=== PATIENT | female | born 1995 | race Caucasian/White ===

== ENCOUNTER 2017-11-14 20:36 | Inpatient (IN) ==
[2017-11-14] MEDS ORDERED: ACETAMINOPHEN 325 MG TABLET PO PRN (20:48)
[2017-11-14] MEDS ORDERED: BUTORPHANOL 2 MG/ML VIAL IV PRN (20:48)
[2017-11-14] MEDS ORDERED: ONDANSETRON 4 MG/2 ML VIAL IV PRN (20:48)
[2017-11-14] MEDS ORDERED: MEPERIDINE 50 MG/1 ML VIAL IV PRN (20:48)
[2017-11-14 21:12] LABS: Basophils % 0.1 % (0.0-0.8); Eosinophils % 0.2 % (0.00-10.9); Immature Granulocytes % 0.6 %; Immature Granulocytes Absolute 0.06 #; Lymphocytes # 1.7 10*3/uL (1.4-4.0); Lymphocytes % 17.8 % (21.3-54.2); Mean Corpuscular HGB Conc 32.1 GM/DL (32-36); Mean Corpuscular Hemoglobin 27 PG (27-34); Mean Corpuscular Volume 85.1 FL (87-102); Mean Platelet Volume 10.2 FL (9.6-12.0); Monocytes # 0.8 10*3/uL (0.11-0.8); Monocytes % 8.2 % (1.7-12.7); Neutrophils # 7.1 10*3/uL (1.4-7.4); Neutrophils % 73.1 % (38.7-73.9); Platelet Count 224 T/CUMM (130-400); Red Blood Count 3.29 MC/CUMM (3.8-5.5); Red Cell Distribution Width 13.8 % (9.3-17.3); White Blood Count 9.8 T/CUMM (4-12)
[2017-11-14] MEDS: LACTATED RINGERS 1,000 ML IV SCH (22:13)
[2017-11-15] MEDS: LACTATED RINGERS 1,000 ML IV SCH ×3 (04:07→17:01)
[2017-11-15] MEDS ORDERED: FAMOTIDINE 20 MG/2 ML VIAL IV ONE (09:58)
[2017-11-15] MEDS ORDERED: CITRIC ACID/SODIUM CITRATE 30 ML UDCUP PO ONE (09:58)
[2017-11-15] MEDS ORDERED: ePHEDrine 50 MG/ML AMP IV PRN (09:58)
[2017-11-15] MEDS ORDERED: hydrOXYzine HCL 25 MG/1 ML VIAL IM PRN (09:58)
[2017-11-15] MEDS ORDERED: PROMETHAZINE 25 MG/1 ML VIAL IM ONE (09:58)
[2017-11-15] MEDS ORDERED: LACTATED RINGERS 1,000 ML IV ONE (09:58)
[2017-11-15] MEDS ORDERED: diphenhydrAMINE 50 MG/1 ML VIAL IV PRN ×2 (09:58)
[2017-11-15] MEDS ORDERED: OXYTOCIN/LR 20 UNIT/1,000 ML BAG IV SCH (10:00)
[2017-11-15] MEDS ORDERED: fentaNYL 2 MCG/ROPIV 0.2% EPID 150 ML EPIDURAL SCH (10:00)
[2017-11-15 13:49] LABS: Apearance,Urine CLEAR (Clear); Bilirubin,Urine Negative (Negative); Blood, Urine Small mg/dL (Negative); Glucose,Urine (UA) Negative (Negative); Ketones,Urine 20 mg/dL (Negative); Mucus,Urine Occasional /LPF (Occasional); Nitrite,Urine Negative (Negative); Protein,Urine 100 MG/DL; RBC,Urine 12 /HPF (0-4); Squamous Epithelial Cell,Urine Occasional /HPF (0-10); Urine Color Yellow (Yellow); Urine Urobilinogen < 2.0 EU/DL (0.2-1.0); WBC,Urine 23 /HPF (0-6)
[2017-11-15] MEDS ORDERED: fentaNYL 100 MCG/2 ML VIAL ONE (16:18)
[2017-11-15] MEDS ORDERED: miSOPROStol 200 MCG TABLET ONE (17:07)
[2017-11-15] MEDS ORDERED: BUTORPHANOL 1 MG/ML VIAL ONE (17:07)
[2017-11-15] MEDS ORDERED: oxyCODONE/ACETAMINOPHEN 5-325 MG TABLET PO PRN (18:08)
[2017-11-15] MEDS ORDERED: LANOLIN 50% CREAM 0.3 OZ TUBE TOP PRN (18:08)
[2017-11-15] MEDS ORDERED: MEASLES/MUMPS/RUBELLA VACCINE 0.5 ML VIAL SUBCUT ONE (18:08)
[2017-11-15] MEDS ORDERED: ACETAMINOPHEN 325 MG TABLET PO PRN (18:08)
[2017-11-15] MEDS ORDERED: WITCH HAZEL PADS 100/JAR TOP PRN (18:08)
[2017-11-15] MEDS ORDERED: OXYTOCIN/LR 20 UNIT/1,000 ML BAG IV ONE (18:08)
[2017-11-15] MEDS ORDERED: DIPH/TET/ACEL PERT BOOSTER VACCINE 0.5 ML VIAL IM ONE (18:08)
[2017-11-15] MEDS ORDERED: RHO(D) IMMUNE GLOBULIN 300 MCG SYRINGE IM ONE (18:08)
[2017-11-15] MEDS ORDERED: BISACODYL 10 MG SUPP RECTAL PRN (18:08)
[2017-11-15] MEDS ORDERED: ONDANSETRON 4 MG/2 ML VIAL IV PRN (18:08)
[2017-11-15] MEDS ORDERED: HYDROCORTISONE 2.5% RECTAL CREAM 30 GM TUBE TOP PRN (18:08)
[2017-11-15] MEDS ORDERED: BENZOCAINE 20%/MENTHOL 0.5% SPRAY 56 GM CAN TOP PRN (18:08)
[2017-11-15] MEDS: oxyCODONE/ACETAMINOPHEN 5-325 MG TABLET PO PRN (20:48)
[2017-11-15] MEDS: IBUPROFEN 800 MG TABLET PO PRN (20:49)
[2017-11-15] MEDS: DOCUSATE SODIUM 100 MG CAPSULE PO SCH (21:29)
[2017-11-16] MEDS: oxyCODONE/ACETAMINOPHEN 5-325 MG TABLET PO PRN ×4 (02:26→20:45)
[2017-11-16] MEDS: IBUPROFEN 800 MG TABLET PO PRN ×4 (02:27→20:45)
[2017-11-16 06:26] LABS: Basophils % 0.1 % (0.0-0.8); Eosinophils % 0.1 % (0.00-10.9); Hematocrit 21.4 VOL% (35.7-47.0); Immature Granulocytes % 0.5 %; Immature Granulocytes Absolute 0.06 #; Lymphocytes # 1.9 10*3/uL (1.4-4.0); Lymphocytes % 16.2 % (21.3-54.2); Mean Corpuscular HGB Conc 32.2 GM/DL (32-36); Mean Corpuscular Hemoglobin 27 PG (27-34); Mean Corpuscular Volume 83.9 FL (87-102); Mean Platelet Volume 10.4 FL (9.6-12.0); Monocytes # 1.1 10*3/uL (0.11-0.8); Monocytes % 8.9 % (1.7-12.7); Neutrophils # 8.7 10*3/uL (1.4-7.4); Neutrophils % 74.2 % (38.7-73.9); Platelet Count 160 T/CUMM (130-400); Red Blood Count 2.55 MC/CUMM (3.8-5.5); White Blood Count 11.8 T/CUMM (4-12)
[2017-11-16 06:28] LABS: Hemoglobin 6.9 GM/DL (12.0-16.0)
[2017-11-16] MEDS: FERROUS SULFATE 325 MG TABLET PO SCH ×2 (08:22→20:44)
[2017-11-16] MEDS: DOCUSATE SODIUM 100 MG CAPSULE PO SCH ×2 (08:23→20:44)
[2017-11-17] MEDS: IBUPROFEN 800 MG TABLET PO PRN (06:36)
[2017-11-17] MEDS: oxyCODONE/ACETAMINOPHEN 5-325 MG TABLET PO PRN (06:37)
[2017-11-17 08:16] VITALS: BP 95/63
[2017-11-17] MEDS: DOCUSATE SODIUM 100 MG CAPSULE PO SCH (10:13)
[2017-11-17] MEDS: FERROUS SULFATE 325 MG TABLET PO SCH (10:14)
== END 2017-11-17 12:05 | disposition home or self-care (01) | DRG 560 ==
LOC: N.LDOUT 20:36 → N.LD 20:40 → N.OB 11-15 21:17
PROVIDERS: ADMIT Specialist; ATTEND Specialist